=== PATIENT | female | born 1995 | race Two or more races ===

== ENCOUNTER 2022-03-17 19:41 | Emergency (ER) | payer MEDICAID ==
[~2022-03-17] VITALS: Ht 154.9 cm; Wt 67.7 kg
[2022-03-17 20:16] VITALS: BP 127/83
[2022-03-17 20:49] LABS: Urine Bacteria NONE SEEN /hpf (None Seen); Urine Blood Negative /uL (Negative); Urine Specific Gravity 1.013 (1.001-1.035); Urine WBC 1 /hpf (0 - 5)
== END 2022-03-18 00:24 | disposition home or self-care (01) ==
LOC: ER 19:41
DX: R50.9 Fever, unspecified (principal); B34.9 Viral infection, unspecified; R94.31 Abnormal electrocardiogram [ECG] [EKG]; Z20.822 Contact with and (suspected) exposure to COVID-19
CPT/HCPCS: 36415; 81001; 81025; 87426; 87804; 93005